=== PATIENT | female | born 1960 | race Caucasian/White ===

== ENCOUNTER 2022-03-16 20:16 | Observation (INO) | payer OTHER ==
[~2022-03-16] VITALS: Ht 152.4 cm; Wt 67.4 kg
--- NOTE | 2022-03-16 21:20 | NUR ---
PT ARRIVED VIA AMBULANCE AT 2109. PT IS ALERT ABLE TO WALK TO BATHROOM WITH 1-2 PERSON ASSIST. PT STATES SHE USES A WALKER AT HOME, WITH A HISTORY OF FALLS. PREVIOUS STROKE FROM 2 YEARS AGO WITH LEFT SIDED DEFICITS AND BONE FLAP IN BACK. SCRATCHES ON PATIENTS LEGS FROM ITCHING IN HER SLEEP, PT STATES SHE STARTED HAVING A HEADACHE AND NECK PAIN PRIOR TO LEAVING.
[2022-03-16] MEDS ORDERED: OMEP20ER (23:35)
[2022-03-16] MEDS ORDERED: AMLODIPINE BESYL5 MG PO (23:37)
[2022-03-16] MEDS ORDERED: VITAMIN D5000 UNIT (23:37)
[2022-03-16] MEDS ORDERED: LISI20 PO (23:38)
[2022-03-17 04:41] LABS: BASOPHILS ABSOLUTE AUTO 0.03 K/mm3 (0.00-0.23); BASOPHILS PERCENT AUTO 1 % (0-2); EOSINOPHILS ABSOLUTE AUTO 0.26 K/mm3 (0.00-0.68); EOSINOPHILS PERCENT AUTO 4 % (0-6); Hematocrit 41.2 % (33.0-51.0); Hemoglobin 13.1 g/dL (11.5-16.0); IMMATURE GRAN ABSOLUTE AUTO 0.01 K/mm3 (0.00-0.10); IMMATURE GRAN PERCENT AUTO 0 % (0-1); LYMPHOCYTES ABSOLUTE AUTO 1.47 K/mm3 (0.84-5.20); LYMPHOCYTES PERCENT AUTO 23 % (21-46); MONOCYTES ABSOLUTE AUTO 0.73 K/mm3 (0.16-1.47); MONOCYTES PERCENT AUTO 11 % (4-13); Mean Corpuscular HGB 26.8 pg (26.0-34.0); Mean Corpuscular HGB Conc 31.8 g/dL (31.5-36.5); Mean Corpuscular Volume 84 fL (80-100); Mean Platelet Volume 9.9 fL (9.1-12.4); NEUTROPHILS ABSOLUTE AUTO 3.92 K/mm3 (1.96-9.15); NEUTROPHILS PERCENT AUTO 61 % (41-73); Platelet Count 290 K/mm3 (150-400); RDW Coefficient Variation 16.7 % (11.7-14.2); RDW Standard Deviation 51.8 fL (35.1-46.3); Red Blood Cell Count 4.88 M/mm3 (3.80-5.20); White Blood Cell Count 6.42 K/mm3 (4.00-11.30)
[2022-03-17 05:07] LABS: Albumin, Blood 3.3 g/dL (3.4-5.0); Albumin/Globulin Ratio 0.9 (0.8-1.8); Bilirubin, Total 0.6 mg/dL (0.1-1.0); Bun/Creatinine Ratio 10.1 (12.0-20.0); Creatinine, Blood 0.5 mg/dL (0.40-1.00); Globulin, Blood 3.8 g/dL (2.2-4.0); Potassium, Blood 3.6 mmol/L (3.5-5.5); Total Protein, Blood 7.1 g/dL (6.4-8.2)
--- NOTE | 2022-03-17 07:22 | NUR ---
ZOOLOGY PROFESSOR SUMMARY ADMITTED FOR MRI TO RULE OUT CVA. PT IS A FULL CODE. SHE WAS TRANSFERRED FROM [place]. 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 SHE LIVES ALONE WITH VISITS FROM A CAREGIVER. THE PATIENT DENIES ANY DIZZINESS AND ANY NEED FOR MECLIZINE. SHE DID REPORT 8/10 PAIN TO HER HEAD AND BACK - CHRONIC FROM PREVIOUS CRANIOTOMY; MEDICATED WITH 25 MCG OF IV FENTANYL.
[2022-03-17 09:42] LABS: Source, Urine Clean Catch
[2022-03-17 09:46] LABS: Appearance, Urine Clear (Clear); Bilirubin, Urine Neg (Neg); Blood, Urine Neg (Neg); Color, Urine Yellow (P-Yellow); Glucose Qualitative, Urine Neg (Neg); Ketones, Urine Neg (Neg); Leukocyte Esterase, Urine 1+ (Neg); Nitrite, Urine Neg (Neg); Protein, Urine Neg (Neg); Specific Gravity, Urine 1.005 (1.003-1.022); Urobilinogen, Urine NORM (Normal)
[2022-03-17 10:11] LABS: Bacteria Rare /hpf; Red Blood Cells, Urine 0-2 /hpf (0-2); Squamous Epithelial Cells Few /hpf (Few)
--- NOTE | 2022-03-17 17:39 | NUR ---
SHIFT SUMMARY PATIENT ALERT AND ORIENTED X4, PLEASANT AND COOPERATIVE WITH CARE. PATIENT WENT FOR MRI TODAY. NEW IV PLACED IN LEFT FOREARM. PATIENT WORKED WITH PT AND OT. PATIENT STATES PAIN IN NECK AND HEAD HAS SUBSIDED, NO THROBBING PRESENT. PATIENT IS CURRENTLY RESTING IN BED. NO ACUTE CHANGES. CALL LIGHT WITHIN REACH, BED IN LOWEST POSITION.
--- NOTE | 2022-03-18 04:21 | NUR ---
FILLER SHREDDER MACHINE SUMMARY ADMITTED FOR MRI TO R/O CVA. PT IS FULL CODE. SHE HAS HAD CHRONIC PAIN IN HER NECK AND BACK THROUGHOUT THE SHIFT. MEDICATED X2 WITH TYLENOL AND HAS BEEN SLEEPING. PT VERY IMPULSIVE AND TRIES TO GET UP QUICKLY. PT REPORTS IMPROVEMENT IN THE "HEAVY" FEELING TO HER LEFT SIDE. SHE IS ALERT AND ORIENTED X4, PLEASANT AND COOPERATIVE WITH CARE. IV FLUIDS FINISHED THIS SHIFT.
[2022-03-18] MEDS ORDERED: ASPI81CH PO (10:45)
[2022-03-18] MEDS ORDERED: MECL12.5 PO (10:47)
--- NOTE | 2022-03-18 13:35 | NUR ---
DISCHARGE NOTE PATIENT DISCHARGED VIA WHEELCHAIR WITH CAREGIVER AND FAMILY AT 1335 TODAY. PATIENT WAS GIVEN MECLIZINE PRIOR TO DISCHARGE. PATIENT HAS BELONGINGS WITH THEM. IV WAS DISCONTINUED WNL. TELE DISCONTINUED AND SENT BACK. VITAL SIGNS STABLE. PATIENT VERBALIZED UNDERSTANDING OF DISCHARGE INSTRUCTIONS. MEDICATIONS FAXED TO [facility]. NOTHING FURTHER TO REPORT.
== END 2022-03-18 13:39 | disposition home health service (06) ==
LOC: MEDS 20:16 → ENPENDDIS 03-18 10:39 → MEDS 03-18 13:39
PROVIDERS: Internal Medicine; ADMIT Internal Medicine
DX: R42 Dizziness and giddiness (principal); H55.00 Unspecified nystagmus; F10.20 Alcohol dependence, uncomplicated; I10 Essential (primary) hypertension; Z86.73 Personal history of transient ischemic attack (TIA), and cerebral infarction without residual deficits; K21.9 Gastro-esophageal reflux disease without esophagitis; Z88.5 Allergy status to narcotic agent; Z79.82 Long term (current) use of aspirin; Z79.899 Other long term (current) drug therapy
CPT/HCPCS: 36415; 70551; 80053; 81001; 85025; 87086; 93306; 96365; 96372; 96375; 96376; 97110-CQ; 97116; 97116-CQ; 97162; 97165; 97535; A9270; G0378; J1650; J2405; J3010; J3411; J7030